=== PATIENT | female | born 1950 | race American Indian/Alaskan Native ===

== ENCOUNTER 2020-01-07 01:05 | Emergency (ER) | payer MEDICARE ==
[2020-01-07] MEDS ORDERED: LORazepam 1 MG TAB PO ONE (03:09)
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
[2020-01-07 03:24] VITALS: BP 130/65
== END 2020-01-07 03:38 | disposition home or self-care (01) ==
LOC: ED 01:05
DX: F41.9 Anxiety disorder, unspecified (principal); I10 Essential (primary) hypertension; E11.9 Type 2 diabetes mellitus without complications; E78.5 Hyperlipidemia, unspecified; F32.9 Major depressive disorder, single episode, unspecified; E78.00 Pure hypercholesterolemia, unspecified; Z79.899 Other long term (current) drug therapy
CPT/HCPCS: 99282